=== PATIENT | male | born 1950 | race Caucasian/White ===

== ENCOUNTER → 2023-09-06 | Outpatient (CLI) | payer OTHER, SELFPAY ==
--- NOTE | 2023-09-06 09:10 | ECHOCS_ITS ---
Reason For Study: HYPERTENSION Procedure This was a 2D Doppler, Color Flow transthoracic echocardiogram. The study was technically difficult. Contrast injection was performed. Exam performed in department. Left Ventricle Normal LV size. Left ventricular systolic function is normal. The estimated ejection fraction is 60 %. Diastolic function is indeterminate. No regional wall motion abnormalities noted. Right Ventricle Normal RV size. Normal systolic function. Atria The left atrium is mildly enlarged. Normal right atrium. Mitral Valve There is Mild focal posterior mitral annular calcification. Mild mitral valve prolapse, posterior leaflet. Trivial mitral valve insufficiency. Tricuspid Valve Normal tricuspid valve. Mild (1+) tricuspid valve insufficiency. Unable to estimate RV systolic pressure due to insufficient tricuspid regurgitant envelope. Aortic Valve Trisinus/trileaflet aortic valve. There is no aortic stenosis. Mild (1+) aortic valve insufficiency. Pulmonic Valve Normal pulmonic valve. Mild (1+) pulmonic valve insufficiency. Great Vessels Normal aortic root. Pericardium/Pleural No pericardial effusion. Medication 22 gauge I.V. with prn adaptor inserted into left arm. Diluted definity 2ml given slow IV push to enhance endocardial definition. MMode/2D Measurements & Calculations LVIDd: 4.1 cm IVSd: 1.0 cm LVOT diam: 1.9 cm LVIDs: 2.5 cm LVPWd: 0.99 cm RVDd: 3.3 cm FS: 38.1 % LVOT area: 2.9 cm2 Ao root diam: 3.3 cm LAV(MOD-bp): 57.6 ml LVAd ap4: 31.6 cm2 LAV(MOD-bp) Indexed: 25.8 ml/m2 LVLd ap4: 7.6 cm LAV(MOD-sp2): 51.2 ml EDV(MOD-sp4): 107.8 ml LAV(MOD-sp4): 65.9 ml EDV(sp4-el): 111.6 ml LVAs ap4: 17.6 cm2 LVLs ap4: 5.9 cm ESV(MOD-sp4): 44.0 ml ESV(sp4-el): 44.6 ml EF(MOD-sp4): 59.2 % EF(sp4-el): 60.0 % LVAd ap2: 32.5 cm2 SV(MOD-sp4): 63.8 ml SV(MOD-sp2): 68.7 ml LVLd ap2: 7.3 cm EDV(MOD-sp2): 118.2 ml EDV(sp2-el): 122.7 ml LVAs ap2: 18.9 cm2 LVLs ap2: 6.1 cm ESV(MOD-sp2): 49.5 ml ESV(sp2-el): 50.1 ml EF(MOD-sp2): 58.2 % SV(sp4-el): 67.0 ml LA dimension(2D): 4.4 cm LA A4 area: 21.5 cm2 RA A4 area: 20.6 cm2 TAPSE: 2.0 cm Time Measurements MV dec time: 0.19 sec Doppler Measurements & Calculations MV E max jarrett: 129.5 cm/sec Lat Peak E' Jarrett: 7.2 cm/sec Med Peak E' Jarrett: 7.7 cm/sec MV A max jarrett: 75.4 cm/sec E/E' lat: 17.9 E/E' med: 16.8 MV E/A: 1.7 Ao V2 max: 140.1 cm/sec LV V1 max: 120.3 cm/sec MV dec slope: 674.5 cm/sec2 Ao max P.9 mmHg LV V1 max P.8 mmHg Ao V2 mean: 97.0 cm/sec LV V1 mean P.2 mmHg Ao mean P.3 mmHg LV V1 mean: 85.4 cm/sec Ao V2 VTI: 36.0 cm LV V1 VTI: 27.3 cm AV (velocity ratio): 0.76 SELENA(I,D): 2.2 cm2 SELENA(V,D): 2.5 cm2 SV(LVOT): 79.9 ml PA V2 max: 104.6 cm/sec PA max PG (full): 2.6 mmHg ECHO/Echo Complete W/ Contrast Interpretation Summary The estimated ejection fraction is 60 %. The left atrium is mildly enlarged. Mild mitral valve prolapse, posterior leaflet There is Mild focal posterior mitral annular calcification. Mild (1+) tricuspid valve insufficiency. No regional wall motion abnormalities noted. The study was technically difficult. Contrast injection was performed. Ordering Physician: Andrew Peace Referring Physician: Andrew Peace Performed By: Naye Cloud RDCS
== END | disposition home or self-care (01) ==
LOC: CVS 09:09
PROVIDERS: PCP Internal Medicine; Referring Provider Chiropractor; Visit Provider Chiropractor
DX: I08.1 Rheumatic disorders of both mitral and tricuspid valves (principal); I10 Essential (primary) hypertension
CPT/HCPCS: 93306; Q9957; A4216; C8929